=== PATIENT | male | born 1995 | race Caucasian/White ===

== ENCOUNTER 2024-09-26 15:10 | Emergency (ER) | payer OTHER ==
[~2024-09-26] VITALS: Ht 165.1 cm; Wt 88.5 kg
[2024-09-26 16:20] LABS: CORONAVIRUS COVID-19 AG Negative (NEGATIVE); INFLUENZA A AG Positive (NEGATIVE); INFLUENZA B AG Negative (NEGATIVE)
[2024-09-26] MEDS ORDERED: AMOCLA875 PO (17:01)
== END 2024-09-26 17:10 | disposition home or self-care (01) ==
LOC: ER 15:10
PROVIDERS: Student in an Organized Health Care Education/Training Program
DX: J10.1 Influenza due to other identified influenza virus with other respiratory manifestations (principal); H66.93 Otitis media, unspecified, bilateral
CPT/HCPCS: 87428-QW; 99282